=== PATIENT | male | born 2000 | race Hispanic/Latino ===

== ENCOUNTER 2023-01-14 18:15 | Emergency (ER) | payer OTHER ==
[~2023-01-14] VITALS: Ht 170.2 cm; Wt 77.1 kg
[2023-01-14 18:19] VITALS: BP 163/96; PULSE 81; RESP 18
[2023-01-14] MEDS ORDERED: KETOROLAC 30MG VIAL (30MG/ML) IM ONE (19:30)
[2023-01-14] MEDS ORDERED: IBUP-2070 PO (19:33)
== END 2023-01-14 20:04 | disposition home or self-care (01) ==
LOC: EDH 18:15
DX: M25.531 Pain in right wrist (principal); K46.9 Unspecified abdominal hernia without obstruction or gangrene; Z90.89 Acquired absence of other organs
CPT/HCPCS: 99283; 96372; J1885

== ENCOUNTER → 2023-02-03 | Emergency (ER) | payer OTHER ==
[~2023-02-03] VITALS: Ht 167.6 cm; Wt 79.4 kg
[~2023-02-03] MED LIST: IBUP-2070 PO
[2023-02-03 17:14] VITALS: BP 155/91; PULSE 84; RESP 16
== END ==
LOC: EDH 17:13
DX: Z02.89 Encounter for other administrative examinations (principal); Z53.21 Procedure and treatment not carried out due to patient leaving prior to being seen by health care provider
CPT/HCPCS: 99281